=== PATIENT | female | born 1990 | race Caucasian/White ===

== ENCOUNTER 2017-10-28 08:36 | Inpatient (IN) | payer OTHER ==
[2017-10-28 09:41] LABS: Basophils % (Auto) 0.1 % (0.0-1.8); Eosinophils % (Auto) 0.1 % (0.0-4.3); Lymphocytes # (Auto) 1.2 K/mm3 (1.2-5.4); Lymphocytes % (Auto) 16.7 % (13.4-35.0); Mean Corpuscular HGB Conc 30 % (30-34); Monocytes # (Auto) 0.2 K/mm3 (0.0-0.8); Monocytes % (Auto) 3.5 % (0.0-7.3); Platelet Count 416 K/mm3 (140-440); Red Blood Count 2.85 M/mm3 (3.65-5.03); Red Cell Distribution Width 17.7 % (13.2-15.2)
[2017-10-28 09:55] LABS: Hematocrit 19.1 % (30.3-42.9); Hemoglobin 5.8 gm/dl (10.1-14.3)
[2017-10-28 09:56] LABS: Mean Corpuscular Hemoglobin 20 pg (28-32); Mean Corpuscular Volume 67 fl (79-97)
[2017-10-28] MEDS ORDERED: NACL 0.9% 500 ML 500 ML IV ONE ×2 (10:14→15:00)
[2017-10-28 10:43] LABS: Amorphous Crystals,Urine Few; Bilirubin,Urine NEG (Negative); Blood,Urine SM (Negative); Color,Urine Yellow (Yellow); Mucus,Urine 1+ /HPF; Protein,Urine <15 mg/dL mg/dL (Negative); Urobilinogen,Urine < 2.0 mg/dL (<2.0)
[2017-10-28] MEDS ORDERED: ZOFRAN IV PRN (11:12)
[2017-10-28] MEDS ORDERED: MILK OF MAGNESIA PO PRN (11:12)
[2017-10-28] MEDS ORDERED: TYLENOL PO PRN (11:12)
[2017-10-28] MEDS ORDERED: DULCOLAX PR PRN (11:12)
--- NOTE | 2017-10-28 11:23 | History and Physical Report ---
History of Present Illness Date of admission: 10/28/17 Chief complaint: sob History of present illness: 27 yo F w/ PMH DM who presents through ED with c/o CP and SOB that has progressively worsened over past several days. Pt. reports 3-4 month hx of heavy unremitting vaginal bleeding. No abd pain, hematochezia or hematuria. No h/a or visual disturbances. No home organizer f/u. Pt. reports similiar episode a few years ago. Past History Past Medical History: diabetes Past Surgical History: No surgical history Social history: no significant social history Family history: no significant family history Medications and Allergies Allergies Allergy/AdvReac Type Severity Reaction Status Date / Time No Known Allergies Allergy Unverified 10/28/17 08:44 Home Medications Medication Instructions Recorded Confirmed Last Taken Type Meclizine [Antivert] 25 mg PO TID PRN 10/28/17 10/28/17 10/27/17 History Metformin HCl [Glucophage] 500 mg PO QDAY 10/28/17 10/28/17 10/27/17 History Naproxen [Naprosyn] 500 mg PO Q12H PRN 10/28/17 10/28/17 Unknown History Triamcinolone 0.1% [Kenalog 0.1% 1 applic TP TID 10/28/17 10/28/17 Unknown History CREAM] Active Meds: Active Medications Acetaminophen (Tylenol) 650 mg PO Q4H PRN PRN Reason: Pain MILD(1-3)/Fever >100.5/THOMAS Bisacodyl (Dulcolax) 10 mg [place] QDAY PRN PRN Reason: Constipation unrelieved by MOM Famotidine (Pepcid) 20 mg PO BID FAHEEM Sodium Chloride (Nacl 0.9% 1000 Ml) 1,000 mls @ 75 mls/hr IV DIRECT FAHEEM Magnesium Hydroxide (Milk Of Magnesia) 30 ml PO Q4H PRN PRN Reason: Constipation Ondansetron HCl (Zofran) 4 mg IV Q8H PRN PRN Reason: N/V unrelieved by Reglan Review of Systems All systems: negative Exam - Constitutional Vitals: Temp Pulse Resp BP Pulse Ox 98.1 F 85 16 121/73 100 10/28/17 08:44 10/28/17 08:44 10/28/17 08:44 10/28/17 08:44 10/28/17 08:44 General appearance: Present: no acute distress, well-nourished - EENT Eyes: Present: PERRL ENT: hearing intact, clear oral mucosa - Neck Neck: Present: supple, normal ROM - Respiratory Respiratory effort: normal Respiratory: bilateral: CTA - Cardiovascular Heart Sounds: Present: S1 & S2. Absent: rub, click - Extremities Extremities: pulses symmetrical, No edema Peripheral Pulses: within normal limits - Abdominal General gastrointestinal: Present: soft, non-tender, non-distended, normal bowel sounds Female genitourinary: Present: normal - Integumentary Integumentary: Present: clear, warm, dry, pale - Musculoskeletal Musculoskeletal: gait normal, strength equal bilaterally - Psychiatric Psychiatric: appropriate mood/affect, intact judgment & insight - Neurologic Neurologic: CNII-XII intact, moves all extremities Results - Labs CBC & Chem 7: 10/28/17 09:28 Labs: Laboratory Last Values WBC 6.9 K/mm3 (4.5-11.0) 10/28/17 09:28 RBC 2.85 M/mm3 (3.65-5.03) L 10/28/17 09:28 Hgb 5.8 gm/dl (10.1-14.3) L* 10/28/17 09:28 Hct 19.1 % (30.3-42.9) L* 10/28/17 09:28 MCV 67 fl (79-97) L 10/28/17 09:28 MCH 20 pg (28-32) L 10/28/17 09:28 MCHC 30 % (30-34) 10/28/17 09:28 RDW 17.7 % (13.2-15.2) H 10/28/17 09:28 Plt Count 416 K/mm3 (140-440) 10/28/17 09:28 Lymph % (Auto) 16.7 % (13.4-35.0) 10/28/17 09:28 [place] % (Auto) 3.5 % (0.0-7.3) 10/28/17 09:28 Eos % (Auto) 0.1 % (0.0-4.3) 10/28/17 09:28 Baso % (Auto) 0.1 % (0.0-1.8) 10/28/17 09:28 Lymph # 1.2 K/mm3 (1.2-5.4) 10/28/17 09:28 [place] # 0.2 K/mm3 (0.0-0.8) 10/28/17 09:28 Eos # 0.0 K/mm3 (0.0-0.4) 10/28/17 09:28 Baso # 0.0 K/mm3 (0.0-0.1) 10/28/17 09:28 Seg Neutrophils % 79.6 % (40.0-70.0) H 10/28/17 09:28 Seg Neutrophils # 5.5 K/mm3 (1.8-7.7) 10/28/17 09:28 HCG, Qual Negative (Negative) 10/28/17 09:28 Urine Color Yellow (Yellow) 10/28/17 10:06 Urine Turbidity Clear (Clear) 10/28/17 10:06 Urine pH 5.0 (5.0-7.0) 10/28/17 10:06 Ur Specific [place] 1.024 (1.003-1.030) 10/28/17 10:06 Urine Protein <15 mg/dl mg/dL (Negative) 10/28/17 10:06 Urine Glucose (UA) Neg mg/dL (Negative) 10/28/17 10:06 Urine Ketones Neg mg/dL (Negative) 10/28/17 10:06 Urine Blood Sm (Negative) 10/28/17 10:06 Urine Nitrite Neg (Negative) 10/28/17 10:06 Urine Bilirubin Neg (Negative) 10/28/17 10:06 Urine Urobilinogen < 2.0 mg/dL (<2.0) 10/28/17 10:06 Ur Leukocyte Esterase Neg (Negative) 10/28/17 10:06 Urine WBC (Auto) 5.0 /HPF (0.0-6.0) 10/28/17 10:06 Urine RBC (Auto) 4.0 /HPF (0.0-6.0) 10/28/17 10:06 U Epithel Cells (Auto) 1.0 /HPF (0-13.0) 10/28/17 10:06 Amorphous Crystals Few 10/28/17 10:06 Urine Mucus 1+ /HPF 10/28/17 10:06 Blood Type B POSITIVE 10/28/17 08:59 Antibody Screen Negative 10/28/17 08:59 Crossmatch See Detail 10/28/17 08:59 Assessment and Plan Assessment and plan: Metomenorrhagia. Check vaginal US. BAT BOY/GIRL consult Symptomatic acute blood loss anemia. T & C and transfuse 2 units PRBCs.
--- NOTE | 2017-10-28 11:38 | Emergency Department Report ---
ED Female HPI - General Chief complaint: Vaginal Bleeding Stated complaint: VAG BLEED Time Seen by Provider: 10/28/17 09:57 Source: patient, family Mode of arrival: Ambulatory Limitations: Language Barrier - History of Present Illness Initial comments: 27 yo Mrs. Farooq presents with weakness and malaise. She has history of abnormal vaginal bleeding for several months. She has had constant vaginal bleeding for 3-4 months. Several years ago she's require blood transfusion due to severe anemia. She is followed by PCP who performed a pelvic ultrasound. Ultrasound was normal according to at the bedside. She now has chest pain shortness of breath lightheadedness headache and generalized weakness. She desires blood transfusion. SHe has not been evaluated by a box order person. Additional history obtained from who is at the bedside. MD Complaint: vaginal bleeding -: month(s) (3-4 months) Severity: moderate Are you Now?: No Associated Symptoms: vaginal bleeding - Related Data Home Medications Medication Instructions Recorded Confirmed Last Taken Meclizine [Antivert] 25 mg PO TID PRN 10/28/17 10/28/17 10/27/17 Metformin HCl [Glucophage] 500 mg PO QDAY 10/28/17 10/28/17 10/27/17 Naproxen [Naprosyn] 500 mg PO Q12H PRN 10/28/17 10/28/17 Unknown Triamcinolone 0.1% [Kenalog 0.1% 1 applic TP TID 10/28/17 10/28/17 Unknown CREAM] Allergies Allergy/AdvReac Type Severity Reaction Status Date / Time No Known Allergies Allergy Verified 10/28/17 11:35 ED Review of Systems ROS: Stated complaint: VAG BLEED Other details as noted in HPI Comment: All other systems reviewed and negative Constitutional: malaise. denies: fever Eyes: denies: vision change ENT: denies: throat pain Respiratory: denies: cough ED Past Medical Hx - Past Medical History Previous Medical History?: No - Surgical History Past Surgical History?: No - Social History Smoking Status: Never Smoker Substance Use Type: None - Medications Home Medications: Home Medications Medication Instructions Recorded Confirmed Last Taken Type Meclizine [Antivert] 25 mg PO TID PRN 10/28/17 10/28/17 10/27/17 History Metformin HCl [Glucophage] 500 mg PO QDAY 10/28/17 10/28/17 10/27/17 History Naproxen [Naprosyn] 500 mg PO Q12H PRN 10/28/17 10/28/17 Unknown History Triamcinolone 0.1% [Kenalog 0.1% 1 applic TP TID 10/28/17 10/28/17 Unknown History CREAM] ED Physical Exam - General Limitations: Language Barrier General appearance: alert, in no apparent distress, other (appears weak appears pale) - Head Head exam: Present: atraumatic, normocephalic - Eye Eye exam: Present: normal appearance. Absent: scleral icterus, conjunctival injection, nystagmus - ENT ENT exam: Present: mucous membranes moist, other (pallor mucosa) - Neck Neck exam: Present: normal inspection. Absent: tenderness, meningismus - Respiratory Respiratory exam: Present: normal lung sounds bilaterally. Absent: respiratory distress, wheezes, rales, stridor - Cardiovascular Cardiovascular Exam: Present: regular rate, normal rhythm, normal heart sounds. Absent: bradycardia, tachycardia, irregular rhythm, systolic murmur, diastolic murmur, rubs, gallop - GI/Abdominal GI/Abdominal exam: Present: soft, normal bowel sounds. Absent: distended, tenderness, guarding, rebound, rigid - Extremities Exam Extremities exam: Present: normal inspection, full ROM. Absent: tenderness - Back Exam Back exam: Present: normal inspection - Neurological Exam Neurological exam: Present: alert, oriented X3 - Psychiatric Psychiatric exam: Present: normal affect, normal mood - Skin Skin exam: Present: warm, dry, intact, pallor. Absent: rash ED Course Vital Signs 10/28/17 08:44 Temperature 98.1 F Pulse Rate 85 Respiratory 16 Rate Blood Pressure 121/73 O2 Sat by Pulse 100 Oximetry ED Medical Decision Making - Lab Data Result diagrams: 10/28/17 09:28 Laboratory Results - last 24 hr 10/28/17 10/28/17 10/28/17 08:59 09:28 09:28 WBC 6.9 RBC 2.85 L Hgb 5.8 L* Hct 19.1 L* MCV 67 L MCH 20 L MCHC 30 RDW 17.7 H Plt Count 416 Lymph % (Auto) 16.7 [place] % (Auto) 3.5 Eos % (Auto) 0.1 Baso % (Auto) 0.1 Lymph # 1.2 [place] # 0.2 Eos # 0.0 Baso # 0.0 Seg Neutrophils % 79.6 H Seg Neutrophils # 5.5 HCG, Qual Negative Urine Color Urine Turbidity Urine pH Ur Specific [place] Urine Protein Urine Glucose (UA) Urine Ketones Urine Blood Urine Nitrite Urine Bilirubin Urine Urobilinogen Ur Leukocyte Esterase Urine WBC (Auto) Urine RBC (Auto) U Epithel Cells (Auto) Amorphous Crystals Urine Mucus Blood Type B POSITIVE Antibody Screen Negative Crossmatch See Detail 10/28/17 10:06 WBC RBC Hgb Hct MCV MCH MCHC RDW Plt Count Lymph % (Auto) [place] % (Auto) Eos % (Auto) Baso % (Auto) Lymph # [place] # Eos # Baso # Seg Neutrophils % Seg Neutrophils # HCG, Qual Urine Color Yellow Urine Turbidity Clear Urine pH 5.0 Ur Specific [place] 1.024 Urine Protein <15 mg/dl Urine Glucose (UA) Neg Urine Ketones Neg Urine Blood Sm Urine Nitrite Neg Urine Bilirubin Neg Urine Urobilinogen < 2.0 Ur Leukocyte Esterase Neg Urine WBC (Auto) 5.0 Urine RBC (Auto) 4.0 U Epithel Cells (Auto) 1.0 Amorphous Crystals Few Urine Mucus 1+ Blood Type Antibody Screen Crossmatch - Medical Decision Making Abnormal vaginal bleeding, suspect dysfunctional uterine bleeding. Admitted to hospitalists service for transfusion. Critical care attestation.: If time is entered above; I have spent that time in minutes in the direct care of this critically ill patient, excluding procedure time. ED Disposition Clinical Impression: Abnormal vaginal bleeding, Anemia Disposition: OP ADMIT IP TO THIS HOSP Is pt being admited?: Yes Does the pt Need Aspirin: No Condition: Stable
[2017-10-28] MEDS ORDERED: NACL 0.9% 1000 ML 1,000 ML IV SCH (12:00)
--- NOTE | 2017-10-28 12:22 | Ultrasound Report ---
ULTRASOUND PELVIC COMPLETE ULTRASOUND TRANSVAGINAL HISTORY: Vaginal bleeding, menorrhagia. COMPARISON: Pelvic ultrasound report dated 04/06/13. TECHNIQUE: Transabdominal and transvaginal ultrasound with color doppler interrogation. FINDINGS: Uterus: 13.3 x 7.6 x 10.8. No uterine fibroids disease is identified. The cervix is unremarkable. Endometrium: The endometrium is markedly thickened measuring up to 3.2 cm in thickness. On the previous report from 2012, the endometrium measured 2.3 cm. No endometrial fluid or discrete mass or . Right ovary: 3.5 x 2.4 x 3.3 cm. A 2.5 cm cyst is noted in the right ovary. No suspicious mass. Left ovary: 3.5 x 2.7 x 2.9 cm. No focal abnormality. No pelvic fluid or mass is identified. Normal color doppler interrogation. IMPRESSION: Markedly thickening of the endometrium as outlined above. Consider endometrial hyperplasia. 2.5 cm right ovarian cyst.
[2017-10-28] MEDS: PEPCID PO SCH (22:16)
[2017-10-29 06:46] LABS: Hematocrit 28.1 % (30.3-42.9); Hemoglobin 9.2 gm/dl (10.1-14.3); Mean Corpuscular HGB Conc 33 % (30-34); Mean Corpuscular Volume 76 fl (79-97); Platelet Count 395 K/mm3 (140-440); Red Blood Count 3.71 M/mm3 (3.65-5.03)
[2017-10-29 06:51] LABS: Mean Corpuscular Hemoglobin 25 pg (28-32); Red Cell Distribution Width 26.3 % (13.2-15.2)
[2017-10-29 07:05] LABS: BUN/Creatinine Ratio 17; Blood Urea Nitrogen 10 mg/dL (7-17); Calcium 8.3 mg/dL (8.4-10.2); Hemolysis Index 1
[2017-10-29 08:18] VITALS: BP 116/82
[2017-10-29 08:30] LABS: Basophils % (Manual) 0 % (0.0-1.8); Eosinophils % (Manual) 0 % (0.0-4.3); Hypochromasia 1+; Total Cells Counted 100
[2017-10-29 08:31] LABS: Anisocytosis 2+; Ovalocytes Few; Poikilocytosis 1+
[2017-10-29 08:32] LABS: Platelet Estimate Cons; Tear Drop Cells Few
[2017-10-29] MEDS: PEPCID PO SCH (09:11)
--- NOTE | 2017-10-29 10:42 | Discharge Summary ---
Providers - Providers Date of Admission: 10/28/17 10:19 Date of discharge: 10/29/17 Attending physician: DANISHA FERRELL 10/29/17 08:14 Consult to Physician [CONS] Routine Consulting Provider: CHLOE MENDOZA Reason For Exam: vag bleeding Place consult to:: dr. mendoza Notified:: office Phone number called:: Was contact made?: Yes If yes, spoke with:: zaina Time called:: 08:54 Primary care physician: RECORDS MANAGEMENT TECHNICIAN Hospitalization Condition: Stable Pertinent studies: Pelvic ultrasound revealed Markedly thickening of the endometrium as outlined above. Consider endometrial hyperplasia. 2.5 cm right ovarian cyst. Transvaginal ultrasound revealed Uterus: 13.3 x 7.6 x 10.8. No uterine fibroids disease is identified. The cervix is unremarkable. Endometrium: The endometrium is markedly thickened measuring up to 3.2 cm in thickness. On the previous report from 2012, the endometrium measured 2.3 cm. No endometrial fluid or discrete mass or . Right ovary: 3.5 x 2.4 x 3.3 cm. A 2.5 cm cyst is noted in the right ovary. No suspicious mass. Left ovary: 3.5 x 2.7 x 2.9 cm. No focal abnormality. No pelvic fluid or mass is identified. Normal color doppler interrogation Disposition: DC-01 TO HOME OR SELFCARE Time spent for discharge: 32 minutes Core Measure Documentation - Palliative Care Palliative Care/ Comfort Measures: Not Applicable - Core Measures Any of the following diagnoses?: none Exam - Constitutional Vitals: Temp Pulse Resp BP Pulse Ox 98.0 F 63 18 116/82 98 10/29/17 07:23 10/29/17 07:23 10/29/17 07:23 10/29/17 07:23 10/29/17 07:23 General appearance: Present: no acute distress, well-nourished - EENT Eyes: Present: PERRL ENT: hearing intact, clear oral mucosa - Neck Neck: Present: supple, normal ROM - Respiratory Respiratory effort: normal Respiratory: bilateral: CTA - Cardiovascular Heart Sounds: Present: S1 & S2. Absent: rub, click - Extremities Extremities: pulses symmetrical, No edema Peripheral Pulses: within normal limits - Abdominal General gastrointestinal: Present: soft, non-tender, non-distended, normal bowel sounds - Integumentary Integumentary: Present: clear, warm, dry - Musculoskeletal Musculoskeletal: gait normal, strength equal bilaterally - Psychiatric Psychiatric: appropriate mood/affect, intact judgment & insight - Neurologic Neurologic: CNII-XII intact, moves all extremities - Allied Health Allied health notes reviewed: nursing Plan Activity: advance as tolerated, no driving until cleared by PCP Weight Bearing Status: Full Weight Bearing Diet: regular Follow up with: PRIMARY CARE, [Primary Care Provider] - 7 Days Prescriptions: Ferrous Sulfate 325 mg PO TID #90 tablet.
== END 2017-10-29 12:30 | disposition home or self-care (01) | DRG 760 ==
LOC: ED 08:36 → 3A 10:19
PROVIDERS: ADMIT Hospitalist; ATTEND Hospitalist
PROC: 30233N1 Transfusion of Nonautologous Red Blood Cells into Peripheral Vein, Percutaneous Approach (ICD-10-PCS; principal; 2017-10-28)
DX: N93.9 Abnormal uterine and vaginal bleeding, unspecified (principal); D62 Acute posthemorrhagic anemia
CPT/HCPCS: 36415; 76830; 76856; 80048; 81001; 84703; 85007; 85025; 86850; 86900; 86901; 86920; J2405; J7030; J7040; P9016